=== PATIENT | female | born 1950 | race Caucasian/White ===

== ENCOUNTER 2020-08-04 10:12 | Outpatient (CLI) | payer MEDICARE, SELFPAY ==
--- NOTE | ~2020-08-04 | MM_ITS ---
EXAMINATION: MM screening amol BI w vanesa HISTORY: Screening TECHNIQUE: Craniocaudal and mediolateral oblique 3-D tomosynthesis images were obtained and synthetic 2-D images were generated. CAD analysis was submitted and interpreted. COMPARISON: Comparison to multiple prior studies sequentially, with oldest reviewed study dated 01/25. BREAST PARENCHYMAL COMPOSITION: There are scattered areas of fibroglandular density. FINDINGS: There is no evidence of suspicious mass, calcification, or architectural distortion to sugg est malignancy in either breast. There has been no suspicious interval change. IMPRESSION: 1. No mammographic evidence of malignancy. 2. Recommend routine screening mammography in one year. BI-RADS Category 1: Negative Reviewed, dictated and finalized at location A. OR ADMINISTRATIVE SUPPORT
== END 2020-08-04 10:13 | disposition home or self-care (01) ==
LOC: ANHIMG 10:14
PROVIDERS: PCP Internal Medicine; Visit Provider Nurse Practitioner
DX: Z12.31 Encounter for screening mammogram for malignant neoplasm of breast (principal)
CPT/HCPCS: 77063; 77067

== ENCOUNTER 2021-12-09 18:04 | Observation (INO) | payer MEDICARE, SELFPAY ==
[2021-12-09] VITALS (15 sets, daily range): BP systolic 87–146; BP diastolic 56–88; PULSE 71–85; RESP 14–25; TEMP 36.2; O2SAT 95–100; BMI 30.2
--- NOTE | ~2021-12-09 | CT_ITS ---
EXAMINATION: CT brain wo con DATE: 12/09/2021 21:06 INDICATION: dizziness . TECHNIQUE: Computed tomography (CT) of the head was performed without intravenous contrast. The mA wa s adjusted according to patient size. Iterative reconstruction technique was employed. The dose-lengt h product was 756.67 mGy-cm. COMPARISON: 12/03/2003 FINDINGS: No acute intracranial hemorrhage or extra-axial fluid collection. No hydrocephalus, mass, or herniation. No acute ischemic infarct. Unremarkable dural venous sinus attenuation. No acute osseous abnormality. The aerated spaces are clear. Mild atrophy and chronic white matter change. Atherosclerotic intracranial calcifications. Bilateral lens replacements. IMPRESSION: No acute intracranial process. Reviewed, dictated and finalized at location K.
--- NOTE | ~2021-12-09 | XR_ITS ---
EXAMINATION: XR chest 1V portable Exam Date/Time: 12/09/2021 18:25 CDT HISTORY: cough, COVID + SINCE 12/06, HX HTN, HX CA,HX DIABETES Comparison: None available. RESULT: Lines, tubes, and devices: None. Lungs and pleura: Clear. Cardiomediastinal silhouette: Unremarkable cardiomediastinal silhouette. Other: No acute osseous or upper abdominal finding. IMPRESSION: No acute cardiopulmonary process. Reviewed, dictated and finalized at location K.
--- NOTE | 2021-12-09 18:32 | PC.NURSE ---
Ida, daughter, POA. [phone]
[2021-12-09 18:47] LABS: Basophils Percent Auto 0.5 % (0.2-1.2); Hematocrit 45.3 % (37.0-47.0); Hemoglobin 15.3 g/dL (12.0-15.0); Immature Granulocyte Absolute 0.01 K/mm3 (0.00-0.031); Immature Granulocyte Percent A 0.5 % (0-0.5); Lymphocytes Absolute Auto 0.44 K/mm3 (0.9-3.2); Lymphocytes Percent Auto 21.6 % (18.3-44.2); Mean Corpuscular HGB Conc 33.8 g/dl (32-36); Mean Corpuscular Volume 88.8 fl (80-100); Mean Platelet Volume 9.3 fl (7.4-10.4); Monocytes Absolute Auto 0.3 K/mm3 (0.1-0.6); Monocytes Percent Auto 16.2 % (2.6-8.5); Neutrophils Absolute Auto 1.3 K/mm3 (1.3-6.7); Neutrophils Percent Auto 61.2 % (45.5-73.1); Platelet Count Result 238 k/mm3 (150-375)
[2021-12-09 18:59] LABS: Prothrombin Time 12.4 Seconds (11.1-14.7)
[2021-12-09 19:00] LABS: Partial Thromboplastin Time 28.2 SECONDS (22.3-36.8)
--- NOTE | 2021-12-09 19:05 | ED.NAVMDI ---
HPI - Nausea/Vomiting/Diarrhea General Chief complaint: Nausea/Vomiting/Diarrhea Stated complaint: dizzy, vomiting, COVID + Time Seen by Provider: 12/09/21 18:52 History of Present Illness HPI Narrative: 71-year-old female with history of diabetes, hypertension, chronic renal failure, and cancer presents to the emergency room for evaluation of dizziness and weakness for 3 days. Patient states that she was recently diagnosed with COVID on Saturday, and has began experiencing dizziness that is worse with movement. Patient also states she is got a mild shortness of breath. Patient states the dizziness is causing nausea, and is unable to keep fluids down. Patient has an appointment to get antibodies infused on Saturday. Related Data Home Medications Medication Instructions Recorded Confirmed aspirin 81 mg tablet,delayed 81 mg PO DAILY 05/04/19 09/07/21 release (Aspir-) pen needle, diabetic 32 gauge x #10 ea 05/04/19 09/07/21 (1st Tier Unifine Pentips Plus) B-complex with vitamin C 1 tablet PO DAILY 11/27/19 09/07/21 cholecalciferol (vitamin D3) 25 25 mcg PO DAILY 11/27/19 09/07/21 mcg (1,000 unit) capsule multivitamin 1 tablet PO DAILY 11/27/19 09/07/21 fluticasone propionate 50 2 spray intranasal DAILY PRN 12/01/19 09/07/21 mcg/actuation nasal spray,suspension famotidine 20 mg tablet 20 mg PO DAILY 03/29/20 09/07/21 Allergies Allergy/AdvReac Type Severity Reaction Status Date / Time Iodinated Contrast Media Allergy Unknown Unknown Verified 09/07/21 12:56 latex Allergy Unknown Unknown Verified 09/07/21 12:56 morphine Allergy Unknown Unknown Verified 09/07/21 12:56 Review of Systems Review of Systems: CONSTITUTIONAL: Denies fever, chills, or sweats. EYES: Denies visual changes, redness, or discharge. ENT: Denies rhinorrhea, congestion, sore throat, or otalgia. CARDIOVASCULAR: Denies chest pain, palpitations, or edema. RESPIRATORY: Denies cough or dyspnea. GASTROINTESTINAL: Reports vomiting and diarrhea GENITOURINARY: Denies dysuria or hematuria. SKIN: Denies rash or itching. MUSCULOSKELETAL: Denies back pain, joint pain, or myalgia. NEUROLOGIC: Reports dizziness PSYCHIATRIC: Denies anxiety or depression. PMFSH Family History Family History Sibling Family history of diabetes mellitus in first degree relative Family history of heart disease in male family member before age 55 Father Family history of heart disease in male family member before age 55 Mother Family history of heart disease in male family member before age 55 Social History Social History Alcohol intake: never Exam Narrative: GENERAL: Well-appearing, well-nourished, and in no acute distress. HEAD: Normocephalic, atraumatic. EYES: PERRLA and EOMI. CHEST: Clear to auscultation. No respiratory distress. No wheezes rales or rhonchi HEART: Regular rate and rhythm. No murmur heard. Normal peripheral pulses. ABDOMEN: Soft, nontender, obese, normal active bowel sounds. EXTREMITIES: Normal range of motion. No edema. SKIN: Warm, dry, no rash. NEURO: No focal deficits. Alert and oriented x3. PSYCH: Normal mood and affect. Course Vital Signs Vital signs: Vital Signs Temperature 36.2 C L 12/09/21 18:16 Pulse Rate 85 12/09/21 18:16 Respiratory Rate 20 12/09/21 18:16 Blood Pressure 87/56 L 12/09/21 18:16 Pulse Oximetry 100 12/09/21 18:16 Oxygen Delivery Room Air 12/09/21 18:16 Temperature 36.2 C L 12/09/21 18:16 Pulse Rate 75 12/09/21 21:55 Respiratory Rate 20 12/09/21 21:55 Blood Pressure 128/56 L 12/09/21 21:55 Pulse Oximetry 97 12/09/21 21:55 Oxygen Delivery Room Air 12/09/21 18:16 MDM - Nausea/Vomiting/Diarrhea Lab Data Result diagrams: 12/09/21 18:42 12/09/21 18:59 Labs: Lab Results 12/09/21 12/09/21 12/09/21 Range/Units 18:41
[2021-12-09] MEDS: ONDANSETRON INJ 4 MG/2 ML VIAL IV PUSH (19:17)
[2021-12-09] MEDS: SODIUM CHLORIDE 0.9% IV 1,000 ML 999 ML IV CONT (19:17)
[2021-12-09 19:21] LABS: Lactic Acid Reflex 1.8 mmol/L (0.7-2.0)
[2021-12-09 19:25] LABS: Alanine Aminotransferase 46 U/L (6-35); Albumin Level 3.9 g/dL (3.5-5.1); Alkaline Phosphatase 109 U/L (38-126); Anion Gap 12 mmol/L (8-16); Aspartate Amino Transferase 45 U/L (14-36); Bilirubin,Total < 0.1 mg/dL (0.2-1.3); Blood Urea Nitrogen 28 mg/dL (7-17); CRP 0.8 mg/dL (<1.0); Carbon Dioxide 20 mmol/L (22-30); Chloride 97 mmol/L (98-107); Estimated CRCL calculation 28 ml/min; Estimated Glomerular Filt Rate 26; Glucose 143 mg/dL (65-110); Lactate Dehydrogenase 369 U/L (313-618); Magnesium 1.4 mg/dL (1.6-2.3); Potassium 3.2 mmol/L (3.4-5.0); Sodium 129 mmol/L (137-145)
[2021-12-09 20:23] LABS: Add Urine Microscopic? YES; Appearance Urine Clear (Clear); Bilirubin Urine Negative (Negative); Blood Urine Negative (Negative); Color Urine Yellow (Yellow); Glucose Urine UA Trace mg/dL (Negative); Ketones Urine Negative (Negative); Leukocyte Esterase Ur Negative LEU/UL (Negative); Nitrate Urine Negative (Negative); Protein Urine Negative (Negative); Specific Grav Ur 1.015 (1.001-1.035); Urobilinogen Urine 0.2 mg/dL (<2.0); pH Urine 5.5 (5.0-9.0)
[2021-12-09 20:33] LABS: Mucus Urine Rare /lpf; RBC Urine 0-2 /hpf (0-2); Squamous Epithelial Cell Urine Rare /hpf (Few); WBC Urine 0-3 /hpf
--- NOTE | 2021-12-09 20:44 | PM.IMHP ---
H&P: HPI History of Present Illness Date/Time: 12/09/21 20:44 Chief Complaint: Nausea and vomiting. Narrative: This is a 71-year-old female with past medical history significant for type 2 diabetes mellitus, insulin dependent, hypertension, dyslipidemia. Patient presents to the emergency room due to nausea ,vomiting and diarrhea, has not been feeling well having muscle aches and pains and chills decided to take fci COVID test which turned out to be positive. Patient denies any shortness of breath, cough, sputum production, she had been in her usual state of health up until this point. Patient has been unable to keep anything down preliminary workup in the emergency room was significant for chemistry panel sodium 129, potassium 3.2, creatinine 1.9 a chest x-ray was clear. Patient is been admitted for further evaluation, management and treatment. Review of Systems Review of Systems: Nausea, vomiting, diarrhea. Constitutional: Constitutional: Reports chills, Reports fatigue, Reports fever(s), Reports lethargy, Reports malaise, Reports poor appetite and Reports weakness Eyes: Eyes: Denies change in vision ENT: Denies dysphagia, Denies vertigo, Denies dizziness and Denies odynophagia Cardiovascular: Cardiovascular: Denies syncope, Denies irregular heart rhythm, Denies lightheadedness, Denies palpitations, Denies dyspnea on exertion and Denies paroxysmal nocturnal dyspnea Respiratory: Respiratory: Denies chest congestion and Denies excessive phlegm production Gastrointestinal: Gastrointestinal: Denies abdominal pain, Denies dyspepsia, Denies heartburn, Reports diarrhea, Reports nausea and Reports vomiting Genitourinary: Genitourinary: Denies dysuria Musculoskeletal: Musculoskeletal: Reports myalgias and Denies joint swelling Integumentary/Breasts: Skin/Breast: Denies rash Neurologic: Denies focal weakness and Denies Sensory deficit (Neuro) Psychiatric: Psychiatric: Reports no additional psychiatric complaints and Reports as per HPI Endocrine: Endocrine: Denies cold intolerance, Denies fatigue, Denies flushing, Denies heat intolerance, Denies polyphagia, Denies polydipsia and Denies palpitations Hematologic/Lymphatic: Hematologic/Lymphatic: Reports no additional hematologic/lymphatic complaints and Reports as per HPI Allergic/Immunologic: Allergic/Immunologic: Reports no additional allergic/immunologic complaints and Reports as per HPI [facility] Family History Family History (Updated 12/09/21 @ 22:33 by Raquel Ignacio RN) Sibling Family history of heart disease in male family member before age 55 Father Family history of heart disease in male family member before age 55 Mother Family history of heart disease in male family member before age 55 Social History Social History Smoking status: Never smoker Alcohol intake: never Substance use: never Spiritual care concerns: No Meds Home Medications and Allergies Home Medications Medication Instructions Recorded Confirmed Type aspirin 81 mg tablet,delayed 81 mg PO DAILY 05/04/19 12/09/21 History release (Aspir-) B-complex with vitamin C 1 tablet PO DAILY 11/27/19 12/09/21 History cholecalciferol (vitamin D3) 25 25 mcg PO DAILY 11/27/19 12/09/21 History mcg (1,000 unit) capsule multivitamin 1 tablet PO DAILY 11/27/19 12/09/21 History famotidine 20 mg tablet 20 mg PO DAILY 03/29/20 12/09/21 History losartan 50 mg-hydrochlorothiazide 1 tablet PO DAILY #1 tablet 09/07/21 12/09/21 Rx 12.5 mg tablet semaglutide 14 mg tablet 14 mg PO DAILY 0 days #1 tablet 09/07/21 12/09/21 Rx Azo Cranberry 1 tablet PO DAILY 12/09/21 12/09/21 History atorvastatin 80 mg tablet 80 mg PO DAILY 12/09/21 12/09/21 History bupropion HCl 150 mg 24 hr tablet, 150 mg PO DAILY 12/09/21 12/09/21 History extended release dapagliflozin 5 mg tablet (Farxiga) 5 mg PO DAILY 12/09/21 12/09/21 History insulin glargine 100 uni
--- NOTE | 2021-12-09 22:28 | ADMGEN ---
This patient, Sabine Mcleod, was admitted to 3 Med Surg Room 313-01. Patient/family oriented to hospital policies and general routines including ID bracelet, bed and alarms, visiting hours, pain management, procedures, bathroom and other care routines, personal items, smoking policy, room service/diet, and visiting hours. Information on how to activate the Rapid Response Team has been discussed. Patient/Family are encouraged to report perceived risks to care and to ask questions if they do not understand what they are told or what they should do.
[2021-12-09] MEDS: SODIUM CHLORIDE 0.9% IV 1,000 ML 125 ML IV CONT (22:55)
[2021-12-10] VITALS: BP 127/63; PULSE 75; RESP 18; TEMP 36.1; O2SAT 94
[2021-12-10 04:00] VITALS: BP 132/54; PULSE 74; RESP 16; TEMP 36; O2SAT 99
[2021-12-10] MEDS: ONDANSETRON INJ 4 MG/2 ML VIAL IV PUSH ×2 (04:18→18:25)
[2021-12-10] MEDS: LEVOTHYROXINE SODIUM 88 MCG TABLET PO (06:09)
[2021-12-10 06:21] LABS: Basophils Percent Auto 0.4 % (0.2-1.2); Eosinophils Percent Auto 0.4 % (0-4.4); Hematocrit 41.2 % (37.0-47.0); Hemoglobin 13.4 g/dL (12.0-15.0); Immature Granulocyte Absolute 0.01 K/mm3 (0.00-0.031); Immature Granulocyte Percent A 0.4 % (0-0.5); Lymphocytes Absolute Auto 0.76 K/mm3 (0.9-3.2); Lymphocytes Percent Auto 34.1 % (18.3-44.2); Mean Corpuscular HGB Conc 32.5 g/dl (32-36); Mean Corpuscular Hemoglobin 29.7 pg (26-34); Mean Corpuscular Volume 91.4 fl (80-100); Mean Platelet Volume 9.2 fl (7.4-10.4); Monocytes Absolute Auto 0.4 K/mm3 (0.1-0.6); Monocytes Percent Auto 18.8 % (2.6-8.5); Neutrophils Percent Auto 45.9 % (45.5-73.1); Platelet Count Result 181 k/mm3 (150-375); Red Blood Count 4.51 M/mm3 (4.2-5.4); Red Cell Distribution Width 14.1 % (11.5-14.5); White Blood Count 2.2 K/mm3 (4.5-10.0)
[2021-12-10 06:36] LABS: Alanine Aminotransferase 34 U/L (6-35); Albumin Level 3.3 g/dL (3.5-5.1); Alkaline Phosphatase 86 U/L (38-126); Anion Gap 6 mmol/L (8-16); Aspartate Amino Transferase 36 U/L (14-36); Bilirubin,Total < 0.1 mg/dL (0.2-1.3); Blood Urea Nitrogen 24 mg/dL (7-17); Calcium 7.9 mg/dL (8.4-10.2); Carbon Dioxide 27 mmol/L (22-30); Chloride 102 mmol/L (98-107); Estimated CRCL calculation 30 ml/min; Estimated Glomerular Filt Rate 28; Glucose 81 mg/dL (65-110); Potassium 3.2 mmol/L (3.4-5.0); Sodium 135 mmol/L (137-145)
[2021-12-10] MEDS: SODIUM CHLORIDE 0.9% IV 1,000 ML 125 ML IV CONT ×2 (07:27→14:01)
[2021-12-10 08:00] VITALS: BP 128/83; PULSE 74; PULSE 81; RESP 16; TEMP 36.6; O2SAT 100; O2SAT 99
[2021-12-10 08:12] LABS: Glucose Point of Care 85 mg/dl (65-105)
[2021-12-10] MEDS: POTASSIUM CHLORIDE 20 MEQ TABLET 40 MEQ PO (09:07)
[2021-12-10] MEDS: buPROPion HCL XL (24 HR) 150 MG TABCR PO (09:08)
[2021-12-10] MEDS: HEPARIN SODIUM 5,000 UNITS/ML VIAL 5000 UNITS SUB-Q (09:08)
[2021-12-10] MEDS: ASPIRIN 81 MG ENTERIC TABLET PO (09:08)
[2021-12-10] MEDS: FAMOTIDINE 20 MG TABLET PO (09:08)
[2021-12-10] MEDS: ATORVASTATIN 40 MG TABLET 80 MG PO (09:08)
[2021-12-10] MEDS: VITAMIN B COMPLEX/VIT C CAPSULE 1 EACH PO (09:08)
[2021-12-10] MEDS: MULTIVITAMINS THERAPEUTIC TAB (*BKC) 1 TABLET PO (09:08)
[2021-12-10] MEDS: CHOLECALCIFEROL 1,000 UNITS TABLET 1000 UNITS PO (09:08)
--- NOTE | 2021-12-10 12:07 | PCCCNOTE ---
On 12/10/21, the student, [Herminia Metzger], provided care and completed [facility] documentation on this patient. I have reviewed the student's documentation and agree with the findings.
[2021-12-10 12:08] LABS: Glucose Point of Care 92 mg/dl (65-105)
[2021-12-10 13:13] VITALS: BP 108/64; PULSE 78; RESP 16; TEMP 36.7; O2SAT 100
--- NOTE | 2021-12-10 14:46 | PC.NURSE ---
pt to discharge today per MD Foster
--- NOTE | 2021-12-10 14:49 | PM.DS ---
DS: Admitting Diagnosis Discharge Date December 10 Admitting Diagnosis Dehydration DS: Discharge Diagnosis Discharge Diagnosis (1) Nausea and vomiting: Code(s): R11.2 - Nausea with vomiting, unspecified Status: Acute Assessment and Plan: Resolved, unknown etiology (2) Acute dehydration: Code(s): E86.0 - Dehydration Status: Acute Assessment and Plan: Secondary to 1. (3) Acute hyponatremia: Code(s): E87.1 - Hypo-osmolality and hyponatremia Status: Acute Assessment and Plan: Secondary dehydration, resolved with IV fluids (4) COVID-19: Code(s): U07.1 - COVID-19 Status: Acute Assessment and Plan: Monoclonal antibodies scheduled for tomorrow (5) Chronic kidney disease, stage 3 (moderate): Code(s): N18.3 - Chronic kidney disease, stage 3 (moderate) Status: Acute (6) STEVEN (acute kidney injury): Code(s): N17.9 - Acute kidney failure, unspecified Status: Acute DS: Summary Hospital Course Hospital Course: 71-year-old female with past medical history significant for diabetes, hypertension, kidney disease and history of cancers been to the emergency room for dizziness and weakness for last 2-3 days. She was recently diagnosed with COVID and has been having difficulty progressively worsening with shortness of breath and dizziness upon standing too quickly. She also noted some associated nausea admitted difficult for her to keep liquids down she would throw up and had diarrhea. She is scheduled to get monoclonal antibodies on Saturday. She was admitted to the hospital and noted to have hyponatremia acute kidney injury. She was given IV fluids in these abnormalities resolved. She was discharged in good condition with close outpatient follow-up. Time Spent with Patient Time attestation: Total time spent providing and/or coordinating discharge services: DS: Data Data Completed and Pending Labs on day of discharge: Labs from last 24 hours 12/10/21 12/10/21 12/10/21 12:03 08:08 06:01 WBC RBC Hgb Hct MCV MCH MCHC RDW Plt Count MPV Immature Gran % (Auto) Neut % (Auto) Lymph % (Auto) Moody % (Auto) Eos % (Auto) Baso % (Auto) Lymph # (Auto) Moody # (Auto) Eos # (Auto) Baso # (Auto) Abs Immat Gran (auto) Absolute Neuts (auto) Absolute Nucleated RBC Nucleated RBC % PT INR APTT Sodium 135 L Potassium 3.2 L Chloride 102 Carbon Dioxide 27 Anion Gap 6 L BUN 24 H Creatinine 1.80 H Estim Creat Clear Calc 30 Estimated GFR 28 L Glucose 81 POC Capillary Glucose 92 85 Lactic Acid Calcium 7.9 L Magnesium Total Bilirubin < 0.1 L AST 36 ALT 34 Alkaline Phosphatase 86 Lactate Dehydrogenase C-Reactive Protein Total Protein 6.0 L Albumin 3.3 L Urine Color Urine Appearance Urine pH Ur Specific [place] Urine Protein Urine Glucose (UA) Urine Ketones Ur Blood (Man) Urine Nitrate Urine Bilirubin Urine Urobilinogen Leukocyte Esterase Rfl Urine RBC Urine WBC Ur Squamous Epith Cells Hyaline Casts Urine Mucus 12/10/21 12/09/21 12/09/21 06:01 20:09 18:59 WBC 2.2 L RBC 4.51 Hgb 13.4 Hct 41.2 MCV 91.4 MCH 29.7 MCHC 32.5 RDW 14.1 Plt Count 181 MPV 9.2 Immature Gran % (Auto) 0.4 Neut % (Auto) 45.9 Lymph % (Auto) 34.1 Moody % (Auto) 18.8 H Eos % (Auto) 0.4 Baso % (Auto) 0.4 Lymph # (Auto) 0.76 L Moody # (Auto) 0.4 Eos # (Auto) 0.0 Baso # (Auto) 0.0 Abs Immat Gran (auto) 0.01 Absolute Neuts (auto) 1.0 L Absolute Nucleated RBC 0.0 Nucleated RBC % 0.0 PT INR APTT Sodium Potassium Chloride Carbon Dioxide Anion Gap BUN Creatinine Estim Creat Clear Calc Estimated GFR Glucose POC Capillary Glucose
[2021-12-10 16:20] VITALS: BP 116/62; PULSE 73; RESP 18; TEMP 36.7; O2SAT 100
--- NOTE | 2021-12-10 16:51 | PC.NURSE ---
pt to discharge at 8pm today per pt
[2021-12-10 16:59] LABS: Glucose Point of Care 142 mg/dl (65-105)
[2021-12-10 20:00] VITALS: BP 126/80; PULSE 76; RESP 16; TEMP 37.2; O2SAT 100
== END 2021-12-10 20:30 | disposition home or self-care (01) ==
LOC: ANHED 19:34 → ANH3MEDSUR 22:05
PROVIDERS: Emergency Medicine; Admitting Provider Internal Medicine; Emergency Provider Nurse Practitioner Family; PCP Internal Medicine; Visit Provider Student in an Organized Health Care Education/Training Program
DX: R11.2 Nausea with vomiting, unspecified (principal); E87.1 Hypo-osmolality and hyponatremia; E86.0 Dehydration; U07.1 COVID-19; I12.9 Hypertensive chronic kidney disease with stage 1 through stage 4 chronic kidney disease, or unspecified chronic kidney disease; E11.22 Type 2 diabetes mellitus with diabetic chronic kidney disease; N18.30 Chronic kidney disease, stage 3 unspecified; N17.9 Acute kidney failure, unspecified; K21.9 Gastro-esophageal reflux disease without esophagitis; E78.5 Hyperlipidemia, unspecified; Z79.84 Long term (current) use of oral hypoglycemic drugs; Z79.4 Long term (current) use of insulin
CPT/HCPCS: 36415; 70450; 71045; 80053; 81001; 82948; 83605; 83615; 83735; 85025; 85610; 85730; 86140; 87040; 96361; 96372; 96374; 96376; 99285; A9270; G0378; J1644; J2405; J7030

== ENCOUNTER 2021-12-11 09:06 | Outpatient (RCR) | payer MEDICARE, SELFPAY ==
[2021-12-11 10:12] VITALS: BP 121/65; PULSE 86; TEMP 36.6; O2SAT 97
[2021-12-11] MEDS: FAMOTIDINE 20 MG TABLET PO (10:13)
[2021-12-11] MEDS: diphenhydrAMINE HCl CAP 25 MG CAPSULE PO (10:13)
[2021-12-11] MEDS: ACETAMINOPHEN 325 MG TABLET 650 MG PO (10:13)
[2021-12-11] MEDS: BEBTELOVIMAB 175 MG/2 ML VIAL IV PUSH (10:28)
[2021-12-11 11:13] VITALS: BP 127/66
== END 2021-12-11 16:00 ==
LOC: AMCINF 09:06
PROVIDERS: PCP Internal Medicine; Referring Provider Internal Medicine; Visit Provider Internal Medicine Hematology & Oncology
DX: U07.1 COVID-19 (principal); I12.9 Hypertensive chronic kidney disease with stage 1 through stage 4 chronic kidney disease, or unspecified chronic kidney disease; N18.9 Chronic kidney disease, unspecified
CPT/HCPCS: A9270; M0222; Q0222

== ENCOUNTER 2022-06-04 11:55 | Outpatient (CLI) | payer MEDICARE, SELFPAY ==
--- NOTE | ~2022-06-04 | DEXA_ITS ---
Bone Density Report Name: ABHINAV LIRA Age: 72 Sex: Female Ethnicity: White Date of : 1950 Indication: postmenopausal; screening for osteoporosis; height loss; prior fracture; cancer; Referring Provider: BLANCO, KEVEN Study: Bone densitometry was performed. Exam Date: June 04, 2022 Accession number: [id number] Bone Density: Region BMD T-score Z-score Classification AP Spine(L1-L4) 1.117 0.6 2.8 Normal Femoral Neck (Left) 0.675 -1.6 0.2 Osteopenia Total Hip (Left) 0.957 0.1 1.6 Normal Femoral Neck (Right) 0.748 -0.9 0.9 Normal Total Hip (Right) 0.997 0.4 2.0 Normal Total Hip Mean 0.977 0.3 1.8 Normal World Health Organization criteria for BMD impression classify patients as: Normal (T-score at or above -1.0), Osteopenia (T-score between -1.0 and -2.5), or Osteoporosis (T-score at or below -2.5). 10-year Fracture Risk(1): Major Osteoporotic Fracture 16% Hip Fracture 2.2% Reported Risk Factors: [place] (), Neck BMD=0.675, BMI=27.6, previous fracture (1) FRAX(R) Version 3.08. Fracture probability calculated for an untreated patient. Fracture probability may be lower if the patient has received treatment. Previous Exams: Region Exam Age BMD T-score BMD Change BMD Change Date g/cm2 vs Baseline vs Previous AP Spine (L1-L4) 06/04/2022 72 1.117 0.6 0.034 (3.2%)* 0.034 (3.2%)* 04/25/2017 67 1.083 0.3 Total Hip(Left) 06/04/2022 72 0.957 0.1 -0.090 (-8.6%) -0.090 (-8.6%) 04/25/2017 67 1.047 0.9 Total Hip(Right) 06/04/2022 72 0.997 0.4 -0.136 (-12.0% -0.136 (-12.0% 04/25/2017 67 1.132 1.6 *Denotes significance at 95% confidence level, LSC for AP Spine = 0.022 g/cm2, LSC for Total Hip = 0.027 g/cm2 Clinical Information Provided by Patient: Has had a low trauma fracture Has the following medical conditions: Cancer Patient maximum height was 67 Menopause Age: 57 No regular weight bearing exercise Drinks caffeinated beverages Onset of menses at age 15 Number of children 2 Impression: The patient has low bone mass, based on the Left Femoral Neck T-score. The patient has an estimated ten-year risk of hip fracture of 2.2% and an estimated ten-year risk of major fracture of 16%, based on the WHO FRAX algorithm. The patient has risk factors, including: previous fracture. The BMD for the Total Hip(Left) decreased, changing by -8.6% since the last DXA exam. The BMD
== END 2022-06-04 11:56 | disposition home or self-care (01) ==
LOC: ANHIMG 11:57
PROVIDERS: PCP Internal Medicine; Visit Provider Nurse Practitioner
DX: Z78.0 Asymptomatic menopausal state (principal); M85.852 Other specified disorders of bone density and structure, left thigh
CPT/HCPCS: 77080

== ENCOUNTER 2022-08-15 14:55 | Outpatient (CLI) | payer MEDICARE, SELFPAY ==
--- NOTE | ~2022-08-15 | MM_ITS ---
EXAMINATION: MM screening amol BI w vanesa HISTORY: Screening mammogram TECHNIQUE: Craniocaudal and mediolateral oblique 3-D tomosynthesis images were obtained and synthetic 2-D images were generated. CAD analysis was submitted and interpreted. COMPARISON: August 04, 2020, February 25, 2019, May 17, 2017 bilateral screening mammogram exa minations BREAST PARENCHYMAL COMPOSITION: The breasts are almost entirely fatty. FINDINGS: There is no evidence of suspicious mass, calcification, or architectural distortion to sugg est malignancy in either breast. There has been no suspicious interval change. IMPRESSION: 1. No mammographic evidence of malignancy. 2. Recommend routine screening mammography in one year. BI-RADS Category 1: Negative Reviewed, dictated and finalized at location A. ING FURNACE FEEDER
== END 2022-08-15 14:56 | disposition home or self-care (01) ==
LOC: ANHIMG 14:58
PROVIDERS: PCP Internal Medicine; Visit Provider Nurse Practitioner
DX: Z12.31 Encounter for screening mammogram for malignant neoplasm of breast (principal)
CPT/HCPCS: 77063; 77067